=== PATIENT | male | born 1955 | race Caucasian/White ===

== ENCOUNTER → 2017-05-05 | Outpatient (CLI) | payer OTHER ==
--- NOTE | 2017-05-05 15:35 | US ---
EXAMINATION TYPE: US kidneys/renal and bladder DATE OF EXAM: 05/05/2017 COMPARISON: NONE CLINICAL HISTORY: M54.5 Low Back Pain. Lt back pain x a few weeks EXAM MEASUREMENTS: Right Kidney: 12.1 x 5.4 x 5.9 cm Left Kidney: 12.3 x 5.8 x 6.7 cm Right Kidney: No hydronephrosis or masses seen Left Kidney: No hydronephrosis or masses seen Bladder: wnl Bilateral Jets seen: Yes incidental finding of an enlarged 16.0cm spleen with mass like appearance toward the superior porti on of the spleen that = 6.0cm There is no evidence for hydronephrosis at this point in time. No nephrolithiasis is seen. Cortical medullary differentiation is maintained. No masses are identified. The urinary bladder is anechoic. Bilateral ureteral jets are seen. Incidental note made of a mass at the level of the anterior aspect of the spleen, this may correspond to a splenule, CT could be performed for better evaluation. IMPRESSION: Splenic abnormality as described consider dedicated CT with contrast.
== END | disposition home or self-care (01) ==
LOC: RADUSWWP 14:48
PROVIDERS: ATTEND Family Medicine
DX: M54.5 Low back pain (principal)
CPT/HCPCS: 76770

== ENCOUNTER → 2017-06-02 | Outpatient (CLI) | payer OTHER ==
[2017-06-02 13:15] LABS: Blood Urea Nitrogen 11 mg/dL (9-20)
--- NOTE | 2017-06-02 14:10 | CT ---
EXAMINATION TYPE: CT abdomen w con DATE OF EXAM: 06/02/2017 COMPARISON: 06/11/2010 HISTORY: LUQ and back pain CT DLP: 1968.5 mGycm CONTRAST: CT scan of the abdomen is performed with Oral Contrast and with IV Contrast, patient injected with 10 0 mL of Isovue 300. FINDINGS: LUNG BASES-: No visible nodule. No infiltrate. Chronic elevation right hemidiaphragm. Right basilar parenchymal scar. LIVER/GB: Cholecystectomy clips are in place. There is evidence of mild hepatic steatosis. No spac e occupying hepatic lesion. Biliary tree is of normal caliber. PANCREAS: No inflammation. No distinct mass. SPLEEN: Mild splenomegaly measuring 13.2 cm craniocaudal dimension. No lesion seen. ADRENALS: No nodule. No thickening. KIDNEYS/BLADDER: No hydronephrosis. No nephrolithiasis. Subcentimeter left renal cortical cyst. Uri nary bladder grossly unremarkable. BOWEL: Normal appendix. Normal bowel caliber. No inflammation. LYMPH NODES: No greater than 1cm abdominal or pelvic lymph nodes are appreciated. AORTA: No significant abnormality. OSSEOUS STRUCTURES: Degenerative changes lumbar spine. OTHER: No significant additional abnormality is seen. IMPRESSION: 1. Mild splenomegaly. 2. Chronic elevation right hemidiaphragm with right basilar scarring. 3. Fatty liver.
== END ==
LOC: RADCTMAIN 12:37
PROVIDERS: ATTEND Family Medicine
DX: R16.1 Splenomegaly, not elsewhere classified (principal); K76.0 Fatty (change of) liver, not elsewhere classified; J98.4 Other disorders of lung
CPT/HCPCS: 82565; 84520; 74160; 36415; Q9967

== ENCOUNTER 2018-06-26 07:53 | Day surgery (SDC) | payer OTHER ==
[2018-06-22 13:51] VITALS: BMI 34.0
[~2018-06-26 07:53] MED LIST: LACTATED RINGERS 1,000 ML IV SCH
[2018-06-26] MEDS ORDERED: LIDOCAINE 1% 20 ML VIAL (10MG/ML) FOR IV START INTRADERMA ONE (08:30)
[2018-06-26 08:36] VITALS: RESP 16; TEMP 98.3
[2018-06-26 08:38] LABS: Glucose,Whole Blood 207 mg/dL (75-99)
[2018-06-26] MEDS ORDERED: PROPOFOL 10 MG/ML 20 ML VIAL IV ONE (09:14)
[2018-06-26] MEDS ORDERED: MIDAZOLAM 2 MG/2 ML VIAL ONE (09:14)
[2018-06-26] MEDS ORDERED: LIDOCAINE 1% INJ 10MG/ML (20 ML MDV) ONE (09:14)
[2018-06-26] MEDS ORDERED: fentaNYL (PF) 50 MCG/ML 2 ML AMP ONE (09:14)
--- NOTE | 2018-06-26 09:55 | P.PCN ---
Date of Procedure: 06/26/18 Procedure(s) Performed: Procedure: 1. Esophagogastroduodenoscopy and biopsy. 2. Total colonoscopy. Preoperative diagnosis: Chronic reflux symptoms and screening for colon neoplasia. Postoperative diagnosis: 1. No obvious hiatal hernia, esophagitis or complicated reflux disease. 2. Antral gastritis. 3. Diverticulosis of the colon. 4. Multiple biopsies obtained from the duodenum, antrum and esophagus. Preparation: HalfLytely prep. Sedation: Was provided by anesthesia. Brief clinical history: The patient is 63-year-old male who is scheduled for this evaluation because of chronic reflux symptoms for which he has been self- medicating with Tums. No alarm symptoms. In addition, he is scheduled for screening for colon cancer. He had two prior exams, the last was around 3 years ago and he had polyps removed on that exam. He has no abdominal complaints, bleeding or anemia. Procedure: With the patient on his left lateral decubitus position and after informed consent and adequate sedation, I passed a Olympus-GIF H190 video upper endoscope through the cricopharyngeus down the esophagus. GE junction was around 42-43 cm from the incisors and there was no definite hiatal hernia. There was no evidence of esophagitis or complicated reflux disease. The endoscope was then passed into the stomach which was insufflated with air and inspected in detail including the retroflex view in the cardia. There was some mottling and erythema in the antrum but no ulcers or erosions. Pyloric channel, duodenal bulb, post bulbar area and descending duodenum appeared within normal limits. Because of his history, I obtained biopsies from the duodenum, antrum and esophagus then the endoscope was withdrawn and I proceeded to perform the colonoscopy. Perianal area did not show any fissures or fistulas. There were no masses felt on digital rectal examination. The Olympus CF H190L video colonoscope was then inserted in the rectum in the usual fashion and advanced to the cecum. There were multiple diverticular orifices seen scattered in the sigmoid with an occasional orifice on the right side and around the hepatic flexure with no evidence of acute diverticulitis or strictures. The mucosa appeared healthy. No polyps or tumors were seen. I retroflexed the endoscope in the rectum before the endoscope was withdrawn. The patient tolerated the procedure well. Plan: The patient was reassured. Discussed dietary measures. Will await biopsy results. He will follow up with you as planned and I recommended repeat colonoscopy in 5 years.
[2018-06-26 10:03] VITALS: BP 121/73; PULSE 50
== END 2018-06-26 10:30 | disposition home or self-care (01) ==
LOC: ORWHC2ENDO 07:53
DX: Z12.11 Encounter for screening for malignant neoplasm of colon (principal); K29.50 Unspecified chronic gastritis without bleeding; K57.30 Diverticulosis of large intestine without perforation or abscess without bleeding; Z86.010 Personal history of colon polyps; E11.9 Type 2 diabetes mellitus without complications; I10 Essential (primary) hypertension; G47.33 Obstructive sleep apnea (adult) (pediatric); E78.5 Hyperlipidemia, unspecified; G70.00 Myasthenia gravis without (acute) exacerbation; E66.01 Morbid (severe) obesity due to excess calories; Z68.35 Body mass index [BMI] 35.0-35.9, adult; Z79.82 Long term (current) use of aspirin; Z79.899 Other long term (current) drug therapy
CPT/HCPCS: 88305; 43239; J2250; J2001; J3010; J2704; G0105; 45378

== ENCOUNTER 2023-05-14 12:20 | Emergency (ER) | payer MEDICARE, OTHER ==
[2023-05-14] MEDS: ONDANSETRON 4 MG/2 ML VIAL IVP STA (13:01)
[2023-05-14] MEDS: HYDROmorphone 0.5 MG/0.5 ML SYRINGE IVP STA ×2 (13:02→14:48)
[2023-05-14] MEDS: SODIUM CHLORIDE 0.9% 1,000 ML IV STA (13:02)
[2023-05-14 13:04] VITALS: TEMP 98.7
[2023-05-14 13:19] LABS: Basophils % (A) 1 %; Eosinophils # (A) 0.1 k/uL (0-0.7); Eosinophils % (A) 3 %; HCT 47.8 % (39.0-53.0); HGB 15.7 gm/dL (13.0-17.5); Lymphocytes # (A) 0.8 k/uL (1.0-4.8); Lymphocytes % (A) 15 %; MCH 31.8 pg (25.0-35.0); MCV 96.6 fL (80.0-100.0); Mean Platelet Volume 8.2; Monocytes # (A) 0.3 k/uL (0-1.0); Monocytes % (A) 5 %; Neutrophils # (A) 4.1 k/uL (1.3-7.7); Neutrophils % (A) 75 %; Platelet Count 141 k/uL (150-450); RBC 4.94 m/uL (4.30-5.90); RDW 13.1 % (11.5-15.5); WBC 5.4 k/uL (3.8-10.6)
[2023-05-14 13:29] LABS: ALT 59 U/L (4-49); AST 80 U/L (17-59); African American GFR (CKD) >90 (>60 ml/min/1.73 sqM); Albumin 4.2 g/dL (3.5-5.0); Alkaline Phosphatase 79 U/L (38-126); Anion Gap 7 mmol/L; Blood Urea Nitrogen 10 mg/dL (9-20); Calcium 9.1 mg/dL (8.4-10.2); Carbon Dioxide 30 mmol/L (22-30); Chloride 103 mmol/L (98-107); Glucose 340 mg/dL (74-99); Lipase 159 U/L (23-300); Non-African American GFR(CKD) >90 (>60 ml/min/1.73 sqM); Sodium 140 mmol/L (137-145); Total Bilirubin 0.8 mg/dL (0.2-1.3)
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
--- NOTE | 2023-05-14 14:10 | CT ---
EXAMINATION TYPE: CT abdomen pelvis wo con DATE OF EXAM: 05/14/2023 COMPARISON: 06/02/2017 INDICATION: RIGHT FLANK PAIN DLP: 1793.6 mGycm, Automated exposure control for dose reduction was used. CONTRAST: 0 mL of Isovue 300. Study performed without Oral Contrast TECHNIQUE: Axial images were obtained from above the diaphragm to the pubic rami in the axial plane a t 5 mm thick sections. Reconstructed images are reviewed on the computer in the coronal plane. FINDINGS: Limited CT sections are obtained the lung bases. Some mild streak atelectasis may be along the right diaphragm. Coronary artery calcification is noted.. CT ABDOMEN: Liver: Normal Spleen: Normal Pancreas: Normal Adrenal glands: The adrenal glands are normal. Gallbladder: Surgically absent Kidneys: No masses are evident. No hydronephrosis is present. There is a hypodense area within the anterior left mid right kidney measuring 1.7 cm. No renal stones are identified. Aorta: Vascular calcification is within the aorta. Inferior vena cava: Normal. CT PELVIS: Loops of bowel within the abdomen and pelvis are normal. This study is without oral contrast limi ting bowel evaluation. Appendix: Normal as visualized. No dilated tubular structure or inflammatory change is evident. Urinary bladder: Normal. Genitourinary structures: Prostate is prominent. Osseous structures: No suspicious lytic or sclerotic lesions. IMPRESSION: 1. Small complex cyst anterior right kidney. 2. Minimal subsegmental atelectasis right diaphragm. 3. Prostate hypertrophy.
[2023-05-14 15:26] VITALS: RESP 16
[2023-05-14] MEDS: SODIUM CHLORIDE 0.9% 500 ML 500 ML IV ONE (15:40)
[2023-05-14 16:01] LABS: Appearance,Urine Clear (Clear); Bilirubin,Urine Negative (Negative); Blood,Urine Negative (Negative); Color,Urine Light Yellow; Glucose,Urine (UA) 4+ (Negative); Ketones,Urine Negative (Negative); Leukocyte Esterase,Urine Negative (Negative); Nitrite,Urine Negative (Negative); Protein,Urine Trace (Negative); Specific Gravity,Urine 1.021 (1.001-1.035); Urobilinogen,Urine <2.0 mg/dL (<2.0)
[2023-05-14 16:21] LABS: Glucose,Whole Blood 217 mg/dL (70-110)
[2023-05-14] MEDS: LIDOCAINE 4% PATCH TOPICAL ONE (16:27)
[2023-05-14] MEDS: CYCLOBENZAPRINE 10MG STARTER 3 TAB BTL PO STA (16:27)
[2023-05-14 16:35] VITALS: BP 132/87; PULSE 72
== END 2023-05-14 16:35 | disposition home or self-care (01) ==
LOC: EC 12:20
DX: N28.1 Cyst of kidney, acquired (principal)
CPT/HCPCS: 36415; 80053; 83690; 85025; 81003; 74176; 99284; 96374; 96375; 96376; 96361 ×4; J2405; J1170

== ENCOUNTER → 2023-08-14 | Outpatient (CLI) | payer MEDICARE, OTHER ==
--- NOTE | 2023-08-15 12:21 | MR ---
EXAMINATION TYPE: MR kidney wo/w con DATE OF EXAM: 08/14/2023 9:53 AM CLINICAL INDICATION:Male, 68 years old with history of R renal pain; PHH, Rt renal pain COMPARISON: CT scan abdomen from 05/14/2023. TECHNIQUE: Multiplanar multi-sequence imaging was performed without contrast. Post contrast imaging was performed. Post IV contrast subtraction images were also submitted for review. IV Contrast: 11.5 cc Gadavist FINDINGS: LOWER CHEST: The heart is mildly enlarged. ABDOMEN Liver: No evidence for hepatic steatosis or cirrhosis. Gallbladder and Bile ducts: No evidence for ductal dilation, or biliary stricture or evidence of chol edocholithiasis. The gallbladder is surgically absent. Pancreas: No ductal dilation. No evidence for solid mass. Spleen: Normal for size. Adrenal glands: Unremarkable. Kidneys: Bilateral renal cysts the largest on the right measuring up to 18 mm and on the left measuri ng up to 14 mm. These are high T2/low T1 signal. No suspicious enhancing renal neoplasms. Stomach and Bowel: No evidence for bowel wall thickening or evidence for obstruction. Scattered colon ic diverticula. Retroperitoneum/Peritoneum: No evidence of pneumoperitoneum or free fluid. Vasculature: No aortic aneurysm. Musculoskeletal: The osseous structures appear intact. Lymph Nodes: No gross evidence for lymphadenopathy. Abdominal wall: Unremarkable. IMPRESSION: 1. Bilateral Bosniak type I equivalent renal cysts. 2. No suspicious renal mass. 3. No acute abdominal process. 4. Mild cardiomegaly.
== END | disposition home or self-care (01) ==
LOC: RADMRIMAIN 08:01
PROVIDERS: ATTEND Urology
DX: D41.01 Neoplasm of uncertain behavior of right kidney (principal); N28.1 Cyst of kidney, acquired; I51.7 Cardiomegaly
CPT/HCPCS: 74183; A9585

== ENCOUNTER 2023-09-08 17:12 | Emergency (ER) | payer MEDICARE, OTHER ==
[2023-09-08 17:30] VITALS: RESP 18
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
[2023-09-08] MEDS: HYDROcodone/APAP 5-325MG 1 EACH TAB PO STA (18:28)
--- NOTE | 2023-09-08 19:20 | XR ---
EXAMINATION TYPE: XR ribs LT w pa chest x-ray DATE OF EXAM: 09/08/2023 6:18 PM CLINICAL INDICATION:Male, 68 years old with history of fall, injury; [facility] COMPARISON: TECHNIQUE: XR ribs LT w pa chest x-ray; Frontal and oblique views of the ribs with frontal chest radi ograph. FINDINGS: The ribs have a normal appearance. No evidence of fracture. Overall, the lungs are clear. The cardiac silhouette is normal in size. The remaining osseous structures are intact. IMPRESSION: No acute osseous pathology.
--- NOTE | 2023-09-08 19:22 | XR ---
EXAMINATION TYPE: XR shoulder complete LT DATE OF EXAM: 09/08/2023 6:18 PM CLINICAL INDICATION:Male, 68 years old with history of fall, injury; H COMPARISON: TECHNIQUE: XR shoulder complete LT; examined in AP, internally rotated and scapular Y projections. FINDINGS: No evidence of acute osseous pathology, joint dislocation, or soft tissue swelling. The remaining po rtions of the visualized chest are unremarkable. IMPRESSION: No acute osseous pathology.
[2023-09-08] MEDS: HYDROmorphone 1 MG/ML 1 ML SYRINGE IM STA (19:54)
[2023-09-08 20:08] VITALS: BP 148/79; PULSE 78; TEMP 97.4
== END 2023-09-08 20:11 | disposition home or self-care (01) ==
LOC: EC 17:12
DX: R07.81 Pleurodynia (principal); W18.30XA Fall on same level, unspecified, initial encounter; Y92.002 Bathroom of unspecified non-institutional (private) residence as the place of occurrence of the external cause
CPT/HCPCS: 71101; 73030; 99284; 96372; J1170